=== PATIENT | female | born 1950 | race Caucasian/White ===

== ENCOUNTER → 2024-05-26 09:52 | Outpatient (REF) | payer MEDICARE, OTHER, SELFPAY ==
[2024-05-26 13:19] LABS: FSH 33.7 mIU/ml
== END ==
LOC: RAD 09:52
PROVIDERS: ATTENDING PHYSICIAN Internal Medicine Geriatric Medicine; FAMILY PHYSICIAN Student in an Organized Health Care Education/Training Program; REFERRING PHYSICIAN Nurse Practitioner Family
DX: M81.0 Age-related osteoporosis without current pathological fracture (principal); Z79.890 Hormone replacement therapy
CPT/HCPCS: 36415; 77080; 82670; 83001; 84403

== ENCOUNTER → 2024-07-06 09:13 | Outpatient (REF) | payer MEDICARE, OTHER, SELFPAY ==
[2024-07-06 10:28] LABS: % Basophils 1.4 % (0-2); % Eosinophils 1.6 % (0-6); % Immature Granulocytes 0.2 % (0-0.5); % Lymphocytes 29.2 % (20.5-51.1); % Monocytes 9.3 % (1.7-9.3); % Neutrophils 58.3 % (42.2-75.2); Absolute Basophils 0.1 10^3/uL (0-0.2); Absolute Eosinophils 0.1 10^3/uL (0-0.7); Absolute Lymphocytes 1.7 10^3/uL (1.2-3.4); Absolute Monocytes 0.5 10^3/uL (0.1-0.6); Absolute Neutrophils 3.4 10^3/uL (1.4-6.5); Hemoglobin 13.4 g/dL (12.0-16.0); Mean Corp Hgb Conc. 34.4 g/dL (33.0-37.0); Mean Corpuscular Hgb 30.3 pg (27.0-31.0); Mean Corpuscular Volume 88.2 fL (81.0-99.0); Mean Platelet Volume 8.7 fL (7.4-10.4); Nucleated Red Blood Cells % 0 %; Platelet Count 287 10^3/uL (130-400); Red Blood Cell Count 4.42 10^6/uL (4.20-5.40); Red Cell Dist. Width 12.9 % (11.5-14.5); White Blood Cell Count 5.8 10^3/uL (4.8-10.8)
[2024-07-06 11:57] LABS: Blood Urea Nitrogen 9 mg/dl (7-17); Calcium 9.6 mg/dl (8.4-10.2); Carbon Dioxide 26 mmol/L (22-30); Chloride 100 mmol/L (98-107); Glucose 70 mg/dl (70-99); Potassium 4.7 mmol/L (3.5-5.1); Sodium 140 mmol/L (135-145); eGFR > 60.00
== END ==
LOC: REG 09:13
PROVIDERS: ATTENDING PHYSICIAN Student in an Organized Health Care Education/Training Program; FAMILY PHYSICIAN Student in an Organized Health Care Education/Training Program
DX: Z01.818 Encounter for other preprocedural examination (principal)
CPT/HCPCS: 36415; 80048; 85025; 93005

== ENCOUNTER 2024-07-16 23:05 | Emergency (ER) | payer MEDICARE, OTHER, SELFPAY ==
[2024-07-16 23:13] VITALS: BP 166/79
[2024-07-17 00:15] LABS: % Basophils 1.1 % (0-2); % Eosinophils 1.5 % (0-6); % Immature Granulocytes 0.5 % (0-0.5); % Lymphocytes 35.9 % (20.5-51.1); % Monocytes 9.1 % (1.7-9.3); % Neutrophils 51.9 % (42.2-75.2); Absolute Basophils 0.1 10^3/uL (0-0.2); Absolute Eosinophils 0.1 10^3/uL (0-0.7); Absolute Lymphocytes 2.4 10^3/uL (1.2-3.4); Absolute Monocytes 0.6 10^3/uL (0.1-0.6); Absolute Neutrophils 3.4 10^3/uL (1.4-6.5); Hemoglobin 13.6 g/dL (12.0-16.0); Mean Corp Hgb Conc. 34.9 g/dL (33.0-37.0); Mean Corpuscular Hgb 30.8 pg (27.0-31.0); Mean Corpuscular Volume 88.2 fL (81.0-99.0); Mean Platelet Volume 8.4 fL (7.4-10.4); Nucleated Red Blood Cells % 0 %; Platelet Count 266 10^3/uL (130-400); Red Blood Cell Count 4.42 10^6/uL (4.20-5.40); Red Cell Dist. Width 12.6 % (11.5-14.5); White Blood Cell Count 6.6 10^3/uL (4.8-10.8)
[2024-07-17 00:29] LABS: ALT (SGPT) 14 U/L (0-35); AST (SGOT) 30 U/L (14-36); Albumin 4.6 g/dl (3.5-5.0); Alkaline Phosphatase 63 U/L (38-126); Blood Urea Nitrogen 12 mg/dl (7-17); Calcium 9.7 mg/dl (8.4-10.2); Carbon Dioxide 25 mmol/L (22-30); Chloride 103 mmol/L (98-107); Glucose 98 mg/dl (70-99); Potassium 4.5 mmol/L (3.5-5.1); Sodium 139 mmol/L (135-145); Total Bilirubin 0.5 mg/dl (0.2-1.3); Total Protein 7.1 g/dl (6.3-8.2); eGFR > 60.00
[2024-07-17 00:41] LABS: Troponin I < 0.012 ng/ml
[2024-07-17 01:00] VITALS: BP 137/67
--- NOTE | 2024-07-17 01:48 | ED.GENMED ---
History of Present Illness
General
Chief Complaint: Blood Pressure Problem
Source: patient and spouse
Time Seen by Provider: 07/17/24 00:23
History of Present Illness
History of Present Illness:
74-year-old female presents concerned that her blood pressure. Patient states that she normally has normal blood pressure. Tonight noticed that her blood pressure was high. She also states she has had a little bit of pressure in her head. For
like she also a little bit of heaviness in her chest. Patient states she noted it when she looked in the mirror and noticed that her face was sort of flushed. She does admit that she was recently put on a hormone treatment therapy program
including testosterone, progesterone and estrogen. Patient does wonder if the hormones are too high. Denies palpitations. No shortness of breath.
Past History
Past History
ED Past Medical History: COPD, GERD, Hypothyroidism and Other (Osteopenia, bladder prolapse, gastritis, eczema)
ED Past Surgical History: Appendectomy and Urological
Patient has exhibited threatening behavior?: No
PSI?: No
Social History
Tobacco: Non-smoker
Alcohol: Occasional
Personal:
Living: with family
Family History
Family History: Other (reviewed and non-contributory)
Phy Exam
Physical Exam
Physical Exam:
CONSTITUTIONAL Patient alert and oriented to person, place and time. Well-appearing. Vital signs reviewed. Slightly flushed in the face
HEAD atraumatic, normocephalic.
EYES eyelids normal to inspection, Pupils equally round and reactive to light, Extraocular muscles intact, Conjunctiva normal, Sclera normal.
NECK normal range of motion, Trachea midline, no jugular venous distention.
RESPIRATORY CHEST No respiratory distress noted, Chest expansion equal, Bilateral breath sounds clear.
CARDIOVASCULAR regular rate and rhythm, Heart sounds normal.
ABDOMEN abdomen nontender, Bowel sounds normal. No distention.
BACK normal inspection, no obvious deformities
UPPER EXTREMITY range of motion normal, Motor strength normal, no cyanosis, no edema.
LOWER EXTREMITY range of motion normal, Motor strength normal, no cyanosis, no edema.
NEURO Speech normal, No focal motor deficits, Guille coma scale 15, Memory normal, Cranial Nerves intact to screening exam.
SKIN skin warm, dry, and normal in color.
PSYCHIATRIC patient oriented to person place and time, Normal affect.
Course
Orders/Labs/Results
Orders:
Orders
07/16/24 23:15
EKG [Electrocardiogram (*1)] Urgent
Reason for Study: Hypertension, Benign
EKG- Treatment ONCE
07/17/24 00:08
Complete Blood Count/With Diff Urgent
Comprehensive Metabolic Panel Urgent
TSH Routine
Comment: ADD ON
Troponin I Urgent
07/17/24 01:08
CR Chest - 2 Views Urgent
Comment:
Reason For Exam: HTn, cp
07/17/24 01:49
Add On- LAB Urgent
Tests Added?: tsh
07/17/24 00:08
07/17/24 00:08
Vital Signs
Initial and Last Documented VS:
Initial Vital Signs
Temp Pulse Resp BP Pulse Ox
97.6 F 69 16 166/79 99
07/16/24 23:13 07/16/24 23:13 07/16/24 23:13 07/16/24 23:13 07/16/24 23:13
Last Documented Vital Signs
Temp Pulse Resp BP Pulse Ox
97.6 F 69 18 137/67 99
07/16/24 23:13 07/16/24 23:13 07/17/24 01:00 07/17/24 01:00 07/17/24 01:00
MDM/Problems Addressed
MDM/Problems Addressed:
Uncontrolled hypertension
*Radiology
Radiology exam reviewed: all reviewed NAD by ED Provider
*Pulse Oximetry
Patient hypoxic: no
*EKG
Interpreted by ED Provider?: Yes
Interpretation: normal
Comparison EKG: no changes
Rate: normal
Rhythm: sinus
QRS Pattern: poor R-wave progression
Ischemia: non-specific ST changes
*Real Estate Administrator Interpretation
Rate: normal
Interpretation: normal
Rhythm: sinus
*Critical Care Note
Total Time (30-74mins, 75-104mins- exclusive of procedures): Not Applicable
Data Reviewed
Source: patient and spouse
Further Testing Considered But Not Given:
Consider head CT but no focal deficits
Patient Management
Escalation/DeEscalation of care consider admission/obs:
Patient appears quite well. Blood pressure much improved. Question whether some of the symptoms could be related to her hormone replacement therapy. I do think it is reasonable for outpatient follow-up with PCP and endocrinology
ED Attending Note
-
Portions of this chart may have been created with voice recognition software.� Occasional wrong word or��sound alike� substitutions may have occurred due to the inherent limitations of voice recognition software.
Discharge Plan
Departure
Patient Disposition: Home (Routine Discharge)
Date of Disposition: 07/17/24
Time of Disposition: 01:59
Patient with high blood pressure during this ER visit?: Yes
Discharge Problem:
Uncontrolled hypertension
Instructions: High Blood Pressure (DC), BLOOD PRESSURE
Prescriptions:
No Action
[place] Thyroid 60 MG tablet
60 mg PO DAILY
Theragen Tablet
1 tab PO DAILY
cranberry extract [Ellura] 200 mg Capsule
200 mg PO DAILY
Prolia 60 mg/mL Syringe
60 mg SC [id number]
Compound Progesterone
1 romero PO BID
Patient Comments:
03/14/23--[facility]
Activity Restrictions/Additional Instructions:
Please see your doctor in the next 48 hours for follow-up and reevaluation. Return immediately for worsening symptoms, blood pressure greater than 200/100, weakness of any kind, vision changes, headache or any other concerns.
Interventions
Interventions:
*Risk Screen - Suicide Last Done: 07/16/24 23:13
*General Assessment Last Done: 07/16/24 23:13
*Neglect/Abuse Screening Last Done: 07/16/24 23:13
ED- Fall Risk Assessment Last Done: 07/17/24 01:35
ED- Cardiac Assessment Last Done: 07/17/24 01:35
ED- Neurological Assessment Last Done: 07/17/24 01:35
ED- Pulmonary Assessment Last Done: 07/17/24 01:35
Discharge Date and Time
Print Language: SOMALI
[2024-07-17 02:21] VITALS: BP 133/71
[2024-07-17 02:59] LABS: TSH 4.42 uIU/ml (0.47-4.68)
== END 2024-07-17 03:00 | disposition home or self-care (01) ==
LOC: EMR 23:05
PROVIDERS: Student in an Organized Health Care Education/Training Program; EMERGENCY PHYSICIAN Emergency Medicine; FAMILY PHYSICIAN Student in an Organized Health Care Education/Training Program
DX: J44.9 Chronic obstructive pulmonary disease, unspecified (principal); I10 Essential (primary) hypertension; K21.9 Gastro-esophageal reflux disease without esophagitis; E03.9 Hypothyroidism, unspecified; M85.80 Other specified disorders of bone density and structure, unspecified site; N81.10 Cystocele, unspecified; L30.9 Dermatitis, unspecified; Z87.19 Personal history of other diseases of the digestive system; Z90.49 Acquired absence of other specified parts of digestive tract
CPT/HCPCS: 99283; 71046; 80053; 84443; 84484; 85025; 93005

== ENCOUNTER → 2024-09-25 12:24 | Outpatient (REF) | payer MEDICARE, OTHER, SELFPAY ==
[2024-09-25 14:07] LABS: Erythrocyte Sed Rate 17 mm/hour (0-20)
[2024-09-25 14:26] LABS: C-Reactive Protein < 5.00 mg/L (0.0-10.00)
[2024-09-25 15:44] LABS: Rheumatoid Agglutinin Less Than 10 IU (<10 IU)
[2024-09-28 02:25] LABS: ANA, IgG Reflex to HEp-2 None Detected (None Detected)
== END ==
LOC: REG 12:24
PROVIDERS: ATTENDING PHYSICIAN Internal Medicine Geriatric Medicine; FAMILY PHYSICIAN Student in an Organized Health Care Education/Training Program
DX: M06.4 Inflammatory polyarthropathy (principal); M54.50 Low back pain, unspecified
CPT/HCPCS: 36415; 72110; 73030; 73130; 73565; 73630; 85652; 86038; 86140; 86430

== ENCOUNTER → 2024-11-23 12:45 | Outpatient (REF) | payer MEDICARE, OTHER, SELFPAY | LOC: HWEVLT 12:45 | PROVIDERS: ATTENDING PHYSICIAN Radiology Vascular & Interventional Radiology | DX: I83.892 Varicose veins of left lower extremity with other complications (principal) | CPT/HCPCS: 93971 ==

== ENCOUNTER → 2025-01-18 10:05 | Outpatient (REF) | payer MEDICARE, OTHER, SELFPAY | LOC: HWRAD 10:05 | PROVIDERS: ATTENDING PHYSICIAN Student in an Organized Health Care Education/Training Program | DX: E78.00 Pure hypercholesterolemia, unspecified (principal) | CPT/HCPCS: 75571 ==

== ENCOUNTER → 2025-02-02 09:42 | Outpatient (REF) | payer MEDICARE, OTHER, SELFPAY | LOC: HWWDC 09:42 | PROVIDERS: ATTENDING PHYSICIAN Obstetrics & Gynecology; FAMILY PHYSICIAN Student in an Organized Health Care Education/Training Program | DX: Z12.31 Encounter for screening mammogram for malignant neoplasm of breast (principal); K58.1 Irritable bowel syndrome with constipation | CPT/HCPCS: 74018; 77063; 77067 ==

== ENCOUNTER → 2025-02-08 09:32 | Outpatient (REF) | payer MEDICARE, OTHER, SELFPAY | LOC: HWEVLT 09:32 | PROVIDERS: ATTENDING PHYSICIAN Radiology Vascular & Interventional Radiology | DX: I83.892 Varicose veins of left lower extremity with other complications (principal) | CPT/HCPCS: 36478; C1769 ==

== ENCOUNTER 2025-02-17 22:41 | Emergency (ER) | payer MEDICARE, OTHER, SELFPAY ==
[2025-02-17 22:46] VITALS: BP 187/92
--- NOTE | 2025-02-17 23:31 | ED.GENMED ---
History of Present Illness
<Jd Byrd MD, Resident - Last Filed: 02/17/25 23:53>
General
Chief Complaint: Musculo-Skeletal Complaint
Time Seen by Provider: 02/17/25 23:15
History of Present Illness
History of Present Illness:
This is a 74-year-old female who presents to the ED complaining of left leg pain. Patient reports she had a vein ablation procedure done 10 days ago. She wore her compression stockings for the past 7 days but has been experiencing pain around the
ankle on the left leg. She describes the pain as a pulsating pain. She reports minimal swelling. She can fully ambulate on the leg, and can bear weight on the leg without pain. She denies history of DVT, does not use anticoagulation. She denies
fever, chills.
Past History
<Jd Byrd MD, Resident - Last Filed: 02/17/25 23:53>
Past History
ED Past Medical History: COPD, GERD, Hypothyroidism and Other (Osteopenia, bladder prolapse, gastritis, eczema)
ED Past Surgical History: Appendectomy and Urological
Patient has exhibited threatening behavior?: No
PSI?: No
Social History
Tobacco: Non-smoker
Alcohol: Occasional
Personal:
Living: with family
Family History
Family History: Other (reviewed and non-contributory)
Phy Exam
<Jd Byrd MD, Resident - Last Filed: 02/17/25 23:53>
General Physical Exam
General Presentation: well appearing and no apparent distress
General Skin: warm and dry
Cardiovascular Exam
Cardiovascular Exam: regular rate/rhythm and no edema
Pulmonary Exam
Pulmonary Exam: lungs clear and no respiratory distress
Gastrointestinal Exam
Gastrointestinal Exam: normal bowel sounds, non tender, soft and non distended
Musculoskeletal Exam
Musculoskeletal Exam: other (Left lower extremity without gross deformity. Trace edema noted. Tender, palpable cord-like structure appreciated over the medial ankle. No fluctuance or drainage. No significant swelling. Distal pulses 2+
bilaterally)
Course
<Jd Byrd MD, Resident - Last Filed: 02/17/25 23:53>
Orders/Labs/Results
Orders:
Orders
02/17/25 23:29
Venous Doppler Lwr Ext Left [US Periph Venous LOWER Ext LT] Urgent
Comment:
Reason For Exam: left leg pain after vein ablation
Vital Signs
Initial and Last Documented VS:
Initial Vital Signs
Temp Pulse Resp Pulse Ox
98.7 F 74 18 97
02/17/25 22:43 02/17/25 22:43 02/17/25 22:43 02/17/25 22:43
Last Documented Vital Signs
Temp Pulse Resp BP Pulse Ox
98.7 F 74 18 187/92 97
02/17/25 22:43 02/17/25 22:43 02/17/25 22:43 02/17/25 22:46 02/17/25 22:43
<Hermila Leonard, - Last Filed: 02/18/25 00:36>
Orders/Labs/Results
Orders:
Orders
02/17/25 23:29
Venous Doppler Lwr Ext Left [US Perip Venous LOWER Ext LT] Urgent
Comment:
Reason For Exam: left leg pain after vein ablation
Vital Signs
Initial and Last Documented VS:
Initial Vital Signs
Temp Pulse Resp Pulse Ox
98.7 F 74 18 97
02/17/25 22:43 02/17/25 22:43 02/17/25 22:43 02/17/25 22:43
Last Documented Vital Signs
Temp Pulse Resp BP Pulse Ox
98.7 F 74 18 187/92 97
02/17/25 22:43 02/17/25 22:43 02/17/25 22:43 02/17/25 22:46 02/17/25 22:43
<Jd Byrd MD, Resident - Last Filed: 02/17/25 23:53>
MDM/Problems Addressed
MDM/Problems Addressed:
74-year-old female presents to the ED complaining of left medial ankle pain. Patient is in no acute distress. Left lower extremity with palpable cord-like structure appreciated over the medial ankle. Given concern for focal thrombophlebitis, will
evaluate with Doppler left lower extremity.
<Jd Byrd MD, Resident - Last Filed: 02/17/25 23:53>
*Critical Care Note
Total Time (30-74mins, 75-104mins- exclusive of procedures): Not Applicable
<Hermila Leonard DO - Last Filed: 02/18/25 00:36>
*Radiology
Radiology exam reviewed: other (Venous Doppler left lower extremity negative for DVT. No evidence of phlebitis.)
*Pulse Oximetry
Patient hypoxic: no
ED Attending Note
<Jd Byrd MD, Resident - Last Filed: 02/17/25 23:53>
-
Portions of this chart may have been created with voice recognition software.� Occasional wrong word or��sound alike� substitutions may have occurred due to the inherent limitations of voice recognition software.
<Hermila Leonard DO - Last Filed: 02/18/25 00:36>
ED Attending Note
Patient seen and examined by attending physician: Yes
I performed a history and physical exam of patient and discussed management with resident, I reviewed resident's note and agree with documented findings and plan of care.: Yes
ED Attending Note:
74-year-old woman with history of hypothyroidism, maintained on [place] Thyroid. She underwent left lower extremity varicose vein ablation 10 days ago, performed by Dr. Sanz. Compliant with compression stocking for 7 days as well as 5-day course
of ibuprofen. Since yesterday however complains of left medial ankle pain that has gotten worse today. Left medial ankle pain is much worse with direct palpation. She notes mild local swelling but has not noticed redness. No fever nor chills.
She is also concerned with elevated blood pressure over the past several days and facial flushing most noted at nighttime. No prior history of hypertension.
She denies chest pain, no shortness of breath, no palpitations, no dyspnea on exertion.
74-year-old woman appears her stated age, bright and alert, pleasant, appears in no acute distress. is accompanying.
Heart is regular rate and rhythm.
Lungs are clear to auscultation.
Left lower extremity: There is a superficial varicose vein medial ankle that is moderately tender to palpation. No palpable cord,. Minimal erythema just posterior to this varicose vein. There is no joint effusion, full ankle range of motion with
increased pain with eversion and inversion. No tenderness to the foot nor calf nor thigh. There is no calf fullness. No peripheral edema.
Peripheral pulses are full and equal bilaterally. Rapid capillary refill. Sensation and strength intact.
Concern for focal thrombophlebitis. Less likely gout/pseudogout. No prior history of inflammatory arthropathy. Other consideration is DVT.
Will check venous Doppler left lower extremity.
Moderate hypertension noted. Has improved to 166/80. Will continue to observe. I suspect hypertension may be pain related.
00:30
Patient resting comfortably.
Venous Doppler negative for DVT. Superficial varicose veins noted throughout the calf appear patent and compressible, no evidence of phlebitis.
Recommend patient resume compression stocking for support and resume ibuprofen, 400 mg 3-4 times daily as needed for pain.
Recommend elevating leg, local ice versus heat.
Prompt follow-up with vascular surgeon for recheck.
Also recommend follow-up with PCP regarding elevated systolic blood pressure.
Return precautions discussed.
Discharge Plan
Departure
Patient Disposition: Home (Routine Discharge)
Date of Disposition: 02/18/25
Time of Disposition: 00:33
Patient with high blood pressure during this ER visit?: Yes
Condition: Good
Discharge Problem:
Postoperative pain of extremity
Instructions: Varicose veins and other vein disease in the legs, Vein ablation, BLOOD PRESSURE
Prescriptions:
No Action
[place] Thyroid 60 MG tablet
60 mg PO DAILY
Theragen Tablet
1 tab PO DAILY
cranberry extract [Ellura] 200 mg Capsule
200 mg PO DAILY
Prolia 60 mg/mL Syringe
60 mg SC [id number]
Compound Progesterone
1 romero PO BID
Patient Comments:
03/14/23--[facility]
Referrals:
Danielle Mckeon MD [Family Provider] - Call in 1-3 days for appt
Activity Restrictions/Additional Instructions:
Resume compression stocking to left lower extremity.
You may take ibuprofen 400 mg 3-4 times daily as needed for pain.
Touch base with your vascular surgeon on Wednesday for recheck.
Interventions
Interventions:
*General Assessment Last Done: 02/17/25 22:45
*ED COVID-19 Vaccine History Last Done: 02/17/25 22:45
ED-Musculoskeletal Assessment Last Done: 02/17/25 23:22
Discharge Date and Time
Print Language: [place] K[place]
[2025-02-18 00:34] VITALS: BP 162/82
== END 2025-02-18 01:03 | disposition home or self-care (01) ==
LOC: EMR 22:41
PROVIDERS: EMERGENCY PHYSICIAN Emergency Medicine; FAMILY PHYSICIAN Student in an Organized Health Care Education/Training Program
DX: G89.18 Other acute postprocedural pain (principal); M79.605 Pain in left leg; J44.9 Chronic obstructive pulmonary disease, unspecified; E03.9 Hypothyroidism, unspecified; Z90.49 Acquired absence of other specified parts of digestive tract
CPT/HCPCS: 99284; 93971

== ENCOUNTER 2025-03-14 11:32 | Emergency (ER) | payer MEDICARE, OTHER, SELFPAY ==
[2025-03-14 11:38] VITALS: BP 175/83
--- NOTE | 2025-03-14 12:18 | ED.GENMED ---
History of Present Illness
General
Chief Complaint: Chest Pain
Source: patient
Exam Limitations: none
Time Seen by Provider: 03/14/25 11:59
History of Present Illness
History of Present Illness:
74yoF with a history of hypothyroidism, COPD, and recent diagnosis of hypertension presenting with her for evaluation of multiple complaints. Patient had a varicose vein ablation about a month ago in her left leg. She had a reaction after
the ablation in which she experienced a warm sensation throughout her body and some chest discomfort. She believes this is what triggered everything. Her blood pressure has been elevated over the past month. Her blood pressure has always been low
prior to this. She was started on lisinopril 2.5mg a few weeks ago by her PCP. She was given a 30 day supply but only has taken 6 doses because she does not like the way it makes her feel including problems with insomnia. She has been monitoring her
blood pressures very closely and her BP seems to be worse at nighttime. Blood pressures are 140-150s/100s at its worst. She reports ongoing bitemporal headaches for the past 2 weeks. She currently rates her pain as a 5/10 in severity. She is also
experiencing intermittent chest discomfort and L arm tingling. These symptoms seem to be worse after starting lisinopril. She called her PCP today and was told to go to the ED for evaluation. She denies any visual changes, shortness of breath,
vomiting, syncope.
Past History
Past History
ED Past Medical History: COPD, GERD, Hypothyroidism and Other (Osteopenia, bladder prolapse, gastritis, eczema)
ED Past Surgical History: Appendectomy and Urological
Patient has exhibited threatening behavior?: No
PSI?: No
Social History
Tobacco: Non-smoker
Alcohol: Occasional
Personal:
Living: with family
Family History
Family History: Other (reviewed and non-contributory)
Phy Exam
General Physical Exam
General Presentation: well appearing and no apparent distress
General Skin: warm and dry
General Habitus: normal
General Mental: alert
ENT Exam
ENT Exam: TM's normal, normocephalic and other (No temporal tenderness)
Eye Exam
Eye Exam: PERRL, EOMI and conjunctiva normal
Cardiovascular Exam
Cardiovascular Exam: regular rate/rhythm, no edema, no murmur and normal peripheral pulses (2+ radial pulses bilaterally)
Pulmonary Exam
Pulmonary Exam: lungs clear, no respiratory distress, no rales, no crackles, no rhonchi and no wheezing
Neurological Exam
Neurological Exam: alert and no motor deficits (5/5 strength and gross sensation intact in all extremities.)
[place] Coma Scale
Eye Opening: Spontaneous
Verbal Response: Oriented
Motor Response: Obeys Commands
GCS Total Score: 15
Skin Exam
Skin Exam: normal color and warm/dry
Psychiatric Exam
Psychiatric Exam: normal mood/affect
Scores
Heart Score for Chest Pain Patients
STEMI patient?: No
History: Slightly or Non-Suspicious
ECG: Normal
Age: >/= 65 years
Risk Factors: 1 or 2 Risk Factors
Troponin: </= Normal Limit
Heart Score for Chest Pain Patients: 3
Heart Score Risk: 2.5% MACE over next 6 weeks
Course
Orders/Labs/Results
Orders:
Orders
03/14/25 11:34
ECG [Electrocardiogram (*1)] Urgent
Reason for Study: Chest Pain
EKG- Treatment ONCE
03/14/25 12:16
Cardiac Monitoring- Treatment ONCE
Acetaminophen [Tylenol] 1,000 mg PO NOW STA
CR Chest - 2 Views Urgent
Comment:
Reason For Exam: CP
03/14/25 12:17
CT Head W/o Iv Contrast Urgent
Comment:
Reason For Exam: headache, L arm tingling
03/14/25 12:23
CRP [C-Reactive Protein] Urgent
Comprehensive Metabolic Panel Urgent
Troponin I Urgent
03/14/25 12:24
Complete Blood Count/With Diff Urgent
ESR [Erythrocyte Sed Rate] Urgent
Abnormal Lab Results
03/14/25
12:24
Lymphocytes % 19.7 L %
(20.5-51.1)
03/14/25 12:24
03/14/25 12:23
Vital Signs
Initial and Last Documented VS:
Initial Vital Signs
Temp Pulse Resp BP Pulse Ox
98.2 F 82 16 175/83 98
03/14/25 11:38 03/14/25 11:38 03/14/25 11:38 03/14/25 11:38 03/14/25 11:38
Last Documented Vital Signs
Temp Pulse Resp BP Pulse Ox
98.2 F 62 13 147/72 98
03/14/25 11:38 03/14/25 12:22 03/14/25 12:21 03/14/25 12:22 03/14/25 12:21
MDM/Problems Addressed
Differential Diagnosis Includes:
74yoF here with multiple complaints including headache, intermittent chest pains, and L arm tingling x 2 weeks. Symptoms seem to be worse since starting lisinopril. Sent in by PCP. BP 175/83 in triage. Remainder of vitals are stable. She is well
appearing in no distress. There is full strength and sensation in extremities on exam. Differential diagnosis includes but is not limited to: tension headache, symptomatic hypertension, medication reaction, ACS, temporal arteritis, less likely CVA
Initial ED plan: Check cardiac labs, ESR/CRP, EKG, CXR, and CT head. Tylenol for headache.
*EKG
Interpreted by ED Provider?: Yes
EKG Intrepretation Date: 03/14/25
Heart Rate: 77
Rate: normal
Rhythm: sinus
[place]: normal axis
QRS Pattern: normal QRS
Ischemia: no ischemia
*Critical Care Note
Total Time (30-74mins, 75-104mins- exclusive of procedures): Not Applicable
Update Note
Update Note:
No ischemic changes on EKG and troponin within normal limits. Renal function is normal. Both ESR and CRP are normal making temporal arteritis unlikely. Chest x-ray clear. CT head negative for acute findings. BP improved to 147/72 without
improvement. Headache down to a 3/10 in severity after Tylenol. No indication for hospitalization. Patient encouraged to f/u with PCP regarding BP management. ED return precautions discussed. Patient in agreement with plan and was discharged in
stable condition.
ED Attending Note
-
Portions of this chart may have been created with voice recognition software.� Occasional wrong word or��sound alike� substitutions may have occurred due to the inherent limitations of voice recognition software.
Discharge Plan
Departure
Patient Disposition: Home (Routine Discharge)
Date of Disposition: 03/14/25
Time of Disposition: 14:06
Patient with high blood pressure during this ER visit?: Yes
Discharge Problem:
Hypertension, Nonintractable headache, Intermittent chest pain
Instructions: Chest Pain PCP Follow Up
Prescriptions:
No Action
[place] Thyroid 60 MG tablet
60 mg PO DAILY
Theragen Tablet
1 tab PO DAILY
cranberry extract [Ellura] 200 mg Capsule
200 mg PO DAILY
Prolia 60 mg/mL Syringe
60 mg SC [id number]
Compound Progesterone
1 romero PO BID
Patient Comments:
03/14/23--[facility] new [facility]resy at a [facility]
Referrals:
Danielle Mckeon MD [Family Provider] -
Activity Restrictions/Additional Instructions:
Please call your family doctor today for further recommendations about your blood pressure medication and to schedule a follow-up appointment.
Return to the ER with any new or worsening symptoms.
Interventions
Interventions:
*Risk Screen - Suicide Last Done: 03/14/25 11:38
*General Assessment Last Done: 03/14/25 12:29
*Neglect/Abuse Screening Last Done: 03/14/25 11:38
*ED- Fall Risk Assessment Last Done: 03/14/25 12:29
*ED COVID-19 Vaccine History Last Done: 03/14/25 12:29
*Nursing Disposition Last Done: 03/14/25 14:34
ED- Cardiac Assessment Last Done: 03/14/25 14:33
Discharge Date and Time
Discharge Date/Time: 03/14/25 14:35
Print Language: BRUNEIAN
[2025-03-14 12:21] VITALS: BP 147/72; BMI 22.0
[2025-03-14 12:22] VITALS: BP 147/72
[2025-03-14 12:36] LABS: % Eosinophils 1.3 % (0-6); % Immature Granulocytes 0.3 % (0-0.5); % Lymphocytes 19.7 % (20.5-51.1); % Monocytes 8.3 % (1.7-9.3); % Neutrophils 69.4 % (42.2-75.2); Absolute Basophils 0.1 10^3/uL (0-0.2); Absolute Eosinophils 0.1 10^3/uL (0-0.7); Absolute Lymphocytes 1.2 10^3/uL (1.2-3.4); Absolute Monocytes 0.5 10^3/uL (0.1-0.6); Absolute Neutrophils 4.3 10^3/uL (1.4-6.5); Hematocrit 40.7 % (37.0-47.0); Mean Corp Hgb Conc. 34.4 g/dL (33.0-37.0); Mean Corpuscular Hgb 30.5 pg (27.0-31.0); Mean Corpuscular Volume 88.7 fL (81.0-99.0); Mean Platelet Volume 8.9 fL (7.4-10.4); Nucleated Red Blood Cells % 0 %; Platelet Count 288 10^3/uL (130-400); Red Blood Cell Count 4.59 10^6/uL (4.20-5.40); Red Cell Dist. Width 12.9 % (11.5-14.5); White Blood Cell Count 6.2 10^3/uL (4.8-10.8)
[2025-03-14 12:53] LABS: ALT (SGPT) 14 U/L (0-35); AST (SGOT) 24 U/L (14-36); Albumin 4.7 g/dl (3.5-5.0); Alkaline Phosphatase 44 U/L (38-126); Blood Urea Nitrogen 9 mg/dl (7-17); Calcium 9.6 mg/dl (8.4-10.2); Carbon Dioxide 29 mmol/L (22-30); Chloride 104 mmol/L (98-107); Estimated Creatinine Clearance 60 ml/min; Glucose 99 mg/dl (70-99); Potassium 4.6 mmol/L (3.5-5.1); Sodium 141 mmol/L (135-145); Total Bilirubin 0.6 mg/dl (0.2-1.3); Total Protein 7.3 g/dl (6.3-8.2); eGFR > 60.00
[2025-03-14] MEDS: TYLENOL 1000 MG PO (12:55)
[2025-03-14 12:57] LABS: C-Reactive Protein < 5.00 mg/L (0.0-10.00)
[2025-03-14 13:01] LABS: Troponin I < 0.012 ng/ml
[2025-03-14 13:20] LABS: Erythrocyte Sed Rate 18 mm/hour (0-20)
== END 2025-03-14 14:35 | disposition home or self-care (01) ==
LOC: EMR 11:32
PROVIDERS: Physician Assistant; EMERGENCY PHYSICIAN Emergency Medicine; FAMILY PHYSICIAN Student in an Organized Health Care Education/Training Program
DX: R07.89 Other chest pain (principal); I10 Essential (primary) hypertension; R51.9 Headache, unspecified; J44.9 Chronic obstructive pulmonary disease, unspecified; E03.9 Hypothyroidism, unspecified
CPT/HCPCS: 99285; 70450; 71046; 80053; 84484; 85025; 85652; 86140; 93005

== ENCOUNTER 2025-03-31 04:59 | Emergency (ER) | payer MEDICARE, OTHER, SELFPAY ==
[2025-03-31] VITALS (7 sets, daily range): BP systolic 129–147; BP diastolic 68–76; BMI 22.7
[2025-03-31 05:19] LABS: % Basophils 0.9 % (0-2); % Eosinophils 1.2 % (0-6); % Immature Granulocytes 0.3 % (0-0.5); % Lymphocytes 22.9 % (20.5-51.1); % Monocytes 11.1 % (1.7-9.3); % Neutrophils 63.6 % (42.2-75.2); Absolute Basophils 0.1 10^3/uL (0-0.2); Absolute Eosinophils 0.1 10^3/uL (0-0.7); Absolute Lymphocytes 1.5 10^3/uL (1.2-3.4); Absolute Monocytes 0.7 10^3/uL (0.1-0.6); Absolute Neutrophils 4.2 10^3/uL (1.4-6.5); Hematocrit 40.6 % (37.0-47.0); Mean Corp Hgb Conc. 34.5 g/dL (33.0-37.0); Mean Corpuscular Hgb 30.6 pg (27.0-31.0); Mean Corpuscular Volume 88.6 fL (81.0-99.0); Mean Platelet Volume 8.8 fL (7.4-10.4); Nucleated Red Blood Cells % 0 %; Platelet Count 284 10^3/uL (130-400); Red Blood Cell Count 4.58 10^6/uL (4.20-5.40); Red Cell Dist. Width 13.1 % (11.5-14.5); White Blood Cell Count 6.6 10^3/uL (4.8-10.8)
[2025-03-31 05:43] LABS: ALT (SGPT) 15 U/L (0-35); AST (SGOT) 24 U/L (14-36); Albumin 4.8 g/dl (3.5-5.0); Alkaline Phosphatase 51 U/L (38-126); Blood Urea Nitrogen 14 mg/dl (7-17); Calcium 10.6 mg/dl (8.4-10.2); Carbon Dioxide 30 mmol/L (22-30); Chloride 101 mmol/L (98-107); Estimated Creatinine Clearance 45 ml/min; Glucose 101 mg/dl (70-99); Lipase 171 U/L (23-300); Potassium 4.4 mmol/L (3.5-5.1); Sodium 141 mmol/L (135-145); Total Protein 7.8 g/dl (6.3-8.2); eGFR > 60.00
--- NOTE | 2025-03-31 06:17 | EDRN ---
Patient ambulated to the restroom and back in bed resting comfortably at this time.
--- NOTE | 2025-03-31 07:27 | ED.GENMED ---
History of Present Illness
General
Chief Complaint: Abdominal Symptoms
Time Seen by Provider: 03/31/25 06:37
History of Present Illness
History of Present Illness:
74-year-old female with history of IBS, GERD, dermatitis, high blood pressure presenting to the emergency department for headache and dizziness. Patient reports that the elevated blood pressure has been new within the past month, recently started
on lisinopril. The dose was increased on Wednesday. She took the new dose of 7.5 mg at 5 PM yesterday and around 7 PM started to have dizziness and frontal headache. Dizziness kept her up throughout the night. She also reported some upper abdominal
discomfort without any vomiting. Denies fever, chest pain, difficulty breathing, visual changes. Does note history of vertigo in the past. Denies fall or trauma. Denies focal weakness or sensory deficits to extremities. Symptoms have improved
since arrival to the hospital. The headache is no longer present and dizziness and abdominal discomfort has improved as well. Denies additional acute medical complaints
Past History
Past History
ED Past Medical History: COPD, GERD, Hypothyroidism and Other (Osteopenia, bladder prolapse, gastritis, eczema)
ED Past Surgical History: Appendectomy and Urological
Patient has exhibited threatening behavior?: No
PSI?: No
Social History
Tobacco: Non-smoker
Alcohol: Occasional
Personal:
Living: with family
Family History
Family History: Other (reviewed and non-contributory)
Phy Exam
Physical Exam
Physical Exam:
General: Well-appearing, no clinical signs of dehydration, nontoxic and in no acute distress
HEENT: protecting airway, pupils equal and reactive, nystagmus when looking toward left
Neck: appears supple
CV: Normal heart rate, regular rhythm
Resp: No accessory muscle use, no increased work of breathing, lungs clear to auscultation
Abd: Soft and non-distended, no tenderness to palpation
Extremities: No deformities, no swelling
Neuro: alert, no focal neurologic deficit
: deferred
Rectal: deferred
Psych: Normal affect
Skin: Intact
Course
Orders/Labs/Results
Orders:
Orders
03/31/25 05:01
Electrocardiogram (*1) Urgent
Reason for Study: Abdominal Pain
EKG- Treatment ONCE
IV Insert/Care/Rem.- Treatment PRN
03/31/25 05:09
Complete Blood Count/With Diff Urgent
Comprehensive Metabolic Panel Urgent
Lipase Urgent
03/31/25 07:08
CT Head W/o Iv Contrast Urgent
Comment:
Reason For Exam: dizziness
Meclizine [Antivert] 25 mg PO NOW STA
03/31/25 07:58
Urinalysis Reflex To Culture Urgent
Date Specimen was Collected: 03/31/25
Time Specimen was Collected: 07:08
Urine Microscopic Reflex Cult Urgent
Urine Culture Urgent
CLAIRE Source: U
Specimen Description:
Date Specimen was Collected: 03/31/25
Time Specimen was Collected: 07:08
Abnormal Lab Results
03/31/25 03/31/25
05:09 07:58
Absolute Monos (auto) 0.7 H 10^3/uL
(0.1-0.6)
Monocytes % 11.1 H %
(1.7-9.3)
Glucose 101 H mg/dl
(70-99)
Calcium 10.6 H mg/dl
(8.4-10.2)
Leukocyte Esterase Rfl 1+ A
(Negative)
03/31/25 05:09
03/31/25 05:09
Vital Signs
Initial and Last Documented VS:
Initial Vital Signs
Temp Pulse Resp BP Pulse Ox
98 F 72 20 147/76 98
03/31/25 05:02 03/31/25 05:02 03/31/25 05:02 03/31/25 05:02 03/31/25 05:02
Last Documented Vital Signs
Temp Pulse Resp BP Pulse Ox
97.6 F 63 20 138/73 63
03/31/25 07:28 03/31/25 07:28 03/31/25 07:28 03/31/25 07:28 03/31/25 07:28
MDM/Problems Addressed
MDM/Problems Addressed:
74-year-old female presenting for dizziness, headache, blood pressure. Vital signs normal.
On exam patient resting comfortably, no acute distress. Notes that a lot of her symptoms have resolved or improved since arrival to the hospital. Reports since starting the lisinopril, has had some headache and dizziness. Possible medication
intolerance. With concern for allergic reaction. Blood pressure is currently stable, without present concern for hypertensive urgency or emergency. No tenderness to the abdomen, notes that the abdominal discomfort has improved. Without concern
for serious intra-abdominal process or infection. Suspect possible vertiginous component as well to the dizziness, nystagmus on exam. Otherwise no focal neurologic deficits with lower suspicion for central neurologic process. Given age, will
screen with CT brain imaging. Will treat with meclizine. EKG obtained, nonischemic, no arrhythmia. Laboratory analysis obtained prior to my assessment, unremarkable.
08:35 - Patient CT without acute intracranial normality. Dizziness continues to improve. Feel stable for discharge with outpatient follow-up. Will prescribe meclizine. Ultimately advise discussing with her primary care doctor regarding blood
pressure management and possible change in medication given her symptoms on lisinopril. Return precautions discussed and patient verbalized understanding
*EKG
Interpreted by ED Provider?: Yes
EKG Intrepretation Date: 03/31/25
EKG Intrepretation Time: 07:30
Interpretation: normal
Comparison EKG: no changes (03/14/25)
Heart Rate: 72
Rate: normal
Rhythm: sinus
[place]: normal axis
Interval: normal interval
QRS Pattern: normal QRS
Ischemia: no ischemia
*Critical Care Note
Total Time (30-74mins, 75-104mins- exclusive of procedures): Not Applicable
ED Attending Note
-
Portions of this chart may have been created with voice recognition software.� Occasional wrong word or��sound alike� substitutions may have occurred due to the inherent limitations of voice recognition software.
Discharge Plan
Departure
Prescriptions:
No Action
thyroid (pork) [[place] Thyroid] 60 MG tablet
60 mg PO DAILY
Theragen Tablet
1 tab PO DAILY
cranberry extract [Ellura] 200 mg Capsule
200 mg PO DAILY
Prolia 60 mg/mL Syringe
60 mg SC [id number]
Compound Progesterone
1 romero PO BID
Patient Comments:
03/14/23--[facility] [place] [facility]
Referrals:
UNKNOWN - PT DOES,NOT KNOW [Family Provider]
Interventions
Interventions:
*Risk Screen - Suicide Last Done: 03/31/25 05:02
*General Assessment Last Done: 03/31/25 05:02
*Neglect/Abuse Screening Last Done: 03/31/25 05:02
*ED- Fall Risk Assessment Last Done: 03/31/25 05:02
*ED COVID-19 Vaccine History Last Done: 03/31/25 07:29
YG-[id number] Assessment Last Done: 03/31/25 05:43
Discharge Date and Time
Print Language: OCCITAN
[2025-03-31] MEDS: ANTIVERT 25 MG PO (07:55)
[2025-03-31 08:19] LABS: Urine Albumin Negative (Neg - Trace); Urine Bilirubin Negative (Negative); Urine Character Clear (Clear); Urine Color Yellow; Urine Glucose Negative (Negative); Urine Ketone Negative (Negative); Urine Leukocyte 1+ (Negative); Urine Nitrite Negative (Negative); Urine Occult Blood Negative (Negative); Urine Urobilinogen Negative (Neg - 1+)
[2025-03-31 08:34] LABS: Urine Red Blood Cell None Seen /HPF (0-2); Urine Squamous Cell 0-2 /LPF (Few); Urine White Cell 0-2 /HPF (0-5)
== END 2025-03-31 10:00 | disposition home or self-care (01) ==
LOC: EMR 04:59
PROVIDERS: Emergency Medicine; EMERGENCY PHYSICIAN Student in an Organized Health Care Education/Training Program
DX: R42 Dizziness and giddiness (principal); K58.9 Irritable bowel syndrome, unspecified; K21.9 Gastro-esophageal reflux disease without esophagitis; L30.9 Dermatitis, unspecified; J44.9 Chronic obstructive pulmonary disease, unspecified; E03.9 Hypothyroidism, unspecified; M85.80 Other specified disorders of bone density and structure, unspecified site; Z87.19 Personal history of other diseases of the digestive system; Z90.49 Acquired absence of other specified parts of digestive tract; R10.10 Upper abdominal pain, unspecified
CPT/HCPCS: 70450; 80053; 81003; 81015; 83690; 85025; 87086; 93005; 99284

== ENCOUNTER → 2025-05-03 12:54 | Outpatient (REF) | payer MEDICARE, OTHER, SELFPAY | LOC: HWRAD 12:54 | PROVIDERS: ATTENDING PHYSICIAN Student in an Organized Health Care Education/Training Program | DX: R29.898 Other symptoms and signs involving the musculoskeletal system (principal); M54.2 Cervicalgia | CPT/HCPCS: 70490 ==

== ENCOUNTER → 2025-05-10 12:35 | Outpatient (REF) | payer MEDICARE, OTHER, SELFPAY ==
[2025-05-10 13:48] LABS: Hematocrit 39.0 % (37.0-47.0); Hemoglobin 13.2 g/dL (12.0-16.0); Mean Corp Hgb Conc. 33.8 g/dL (33.0-37.0); Mean Corpuscular Volume 90.5 fL (81.0-99.0); Nucleated Red Blood Cells % 0 %; Platelet Count 298 10^3/uL (130-400); Red Cell Dist. Width 12.9 % (11.5-14.5)
[2025-05-10 14:16] LABS: ALT (SGPT) 15 U/L (0-35); AST (SGOT) 26 U/L (14-36); Albumin 4.5 g/dl (3.5-5.0); Alkaline Phosphatase 50 U/L (38-126); Blood Urea Nitrogen 16 mg/dl (7-17); Calcium 10.0 mg/dl (8.4-10.2); Carbon Dioxide 33 mmol/L (22-30); Chloride 101 mmol/L (98-107); Glucose 95 mg/dl (70-99); Magnesium 2.0 mg/dl (1.6-2.3); Potassium 5.0 mmol/L (3.5-5.1); Sodium 138 mmol/L (135-145); Total Protein 7.3 g/dl (6.3-8.2); eGFR > 60.00
[2025-05-14 16:46] LABS: SSA 52 (Ro)(ENA) Ab, IgG 0 AU/mL (0-40); SSA 60 (Ro)(ENA) Ab, IgG 0 AU/mL (0-40); SSB (La)(ENA) Ab, IgG 0 AU/mL (0-40)
== END ==
LOC: REG 12:35
PROVIDERS: ATTENDING PHYSICIAN Student in an Organized Health Care Education/Training Program
DX: H04.123 Dry eye syndrome of bilateral lacrimal glands (principal); R68.2 Dry mouth, unspecified; R00.2 Palpitations; R41.89 Other symptoms and signs involving cognitive functions and awareness; H93.13 Tinnitus, bilateral; R25.2 Cramp and spasm; R10.9 Unspecified abdominal pain; R42 Dizziness and giddiness
CPT/HCPCS: 36415; 80053; 83735; 84443; 85025; 86235

== ENCOUNTER → 2025-05-14 09:59 | Outpatient (REF) | payer MEDICARE, OTHER, SELFPAY | LOC: HWRAD 09:59 | PROVIDERS: ATTENDING PHYSICIAN Obstetrics & Gynecology Obstetrics; FAMILY PHYSICIAN Student in an Organized Health Care Education/Training Program | DX: N95.0 Postmenopausal bleeding (principal) | CPT/HCPCS: 76830; 76856 ==

== ENCOUNTER → 2025-05-15 10:20 | Outpatient (REF) | payer MEDICARE, OTHER, SELFPAY | LOC: WDC 10:20 | PROVIDERS: ATTENDING PHYSICIAN Obstetrics & Gynecology Obstetrics; FAMILY PHYSICIAN Student in an Organized Health Care Education/Training Program | DX: N63.20 Unspecified lump in the left breast, unspecified quadrant (principal); N64.4 Mastodynia | CPT/HCPCS: 76642 ==

== ENCOUNTER → 2025-05-25 06:50 | Outpatient (REF) | payer MEDICARE, OTHER, SELFPAY | LOC: PAVMRI 06:50 | PROVIDERS: ATTENDING PHYSICIAN Student in an Organized Health Care Education/Training Program | DX: R51.9 Headache, unspecified (principal) | CPT/HCPCS: 70551 ==

== ENCOUNTER → 2025-07-18 13:09 | Outpatient (REF) | payer MEDICARE, OTHER, SELFPAY | LOC: RAD 13:09 | PROVIDERS: ATTENDING PHYSICIAN Student in an Organized Health Care Education/Training Program | DX: R14.0 Abdominal distension (gaseous) (principal) | CPT/HCPCS: 74018 ==

== ENCOUNTER → 2025-09-03 11:17 | Outpatient (REF) | payer MEDICARE, OTHER, SELFPAY | LOC: RAD 11:17 | PROVIDERS: ATTENDING PHYSICIAN Obstetrics & Gynecology Obstetrics; FAMILY PHYSICIAN Student in an Organized Health Care Education/Training Program | DX: R93.89 Abnormal findings on diagnostic imaging of other specified body structures (principal) | CPT/HCPCS: 76830; 76856 ==